=== PATIENT | female | born 1955 | race Caucasian/White ===

== ENCOUNTER → 2019-07-22 | Outpatient (CLI) | payer OTHER ==
[~2019-07-22] MED LIST: FISH OIL 1,001000 M2 PO; FLAX SEED OIL1000 MG PO; KRILL OIL 1,001 EAC1 PO; LEVOTHYROXIN0.125 M1 PO
== END ==
LOC: CAT 08:19
DX: Z13.6 Encounter for screening for cardiovascular disorders (principal); E78.00 Pure hypercholesterolemia, unspecified; I25.10 Atherosclerotic heart disease of native coronary artery without angina pectoris